=== PATIENT | female | born 1990 | race Hispanic/Latino ===

== ENCOUNTER 2017-08-15 01:36 | Emergency (ER) | payer MEDICARE ==
[~2017-08-15] VITALS: Ht 162.6 cm; Wt 129.3 kg
== END 2017-08-15 02:22 | disposition home or self-care (01) ==
LOC: ER 01:36
DX: M54.41 Lumbago with sciatica, right side (principal)
CPT/HCPCS: 99282

== ENCOUNTER 2017-11-22 16:07 | Emergency (ER) | payer OTHER ==
[~2017-11-22] VITALS: Ht 162.6 cm; Wt 122.5 kg
--- OUTSIDE RECORDS SUMMARY | 2017-11-22 16:11 | XMS REPORT | Clinical Summary ---
Author Author [facility] Address Unknown Phone Unavailable Care Team Providers Care Visual Display Manager Name Role Phone PCP Unavailable Allergies No Known Allergies Current Medications Prescription Sig. Disp. Refills Start End Date Status Date ursodiol (ACTIGALL) 300 TK 2 CS PO QAM AND 3 CS 1 01/30/20 Active mg capsule PO HS 17 OCALIVA 5 mg Tab 02/04/20 Active 17 metoclopramide HCl TAKE 1 TABLET BY MOUTH 0 01/12/20 Active (REGLAN) 10 MG tablet TWICE A DAY NEEDED 17 PARA NAUSEA acetaminophen-codeine TK 1 T PO Q 4-6 H PRN 0 02/23/20 Active (TYLENOL #4) 300-60 mg 17 per tablet promethazine (PHENERGAN) TK 1 T PO Q 4-6 H PRN 0 02/23/20 Active 25 MG tablet 17 PANTOPRAZOLE SODIUM Take by mouth as needed. Active (PANTOPRAZOLE ORAL) ciprofloxacin HCl (CIPRO) Take 500 mg by mouth 2 Active 500 MG tablet (two) times daily as needed. traMADol (ULTRAM) 50 mg TK 1 T PO Q 8 H PRN P 2 02/09/20 03/11/20 Discontin tablet 17 17 ued CARAFATE 100 mg/mL SW AND TK 10 ML PO BEFORE 0 02/23/20 03/10/20 Discontin suspension EVERY MEAL AND QHS 17 17 ued traMADol (ULTRAM) 50 mg Take 1 tablet (50 mg 20 tablet 0 03/11/20 tablet total) by mouth every 6 17 17 (six) hours as needed for Pain for up to 10 days. Max Daily Amount: 200 mg Active Problems Problem Noted Date Abnormal liver enzymes 02/24/2017 Last Assessment & Plan: Patient reports she first noticed abnormal liver test in 08/2015. Etiology is unclear could be due to PBC, AIH, NAFLD / BERRY, ALD. She has been treated for PBC with Ursodiol and OCA but her last ALP checked in 02/2017 was 171 and ALT:160. No imaging is available. Interestingly, patient had markedly elevated liver enzymes in early Sep, 2016 which totally normalzied in less than 2 weeks before staring OCA. We will order comprehensive labs and liver MRI for further investigation. We will not make any changes to her medications. She may need liver biopsy in the future if the lab results and imaging are inconclusive. Patient was strongly encouraged to stop drinking alcohol and reduce her soda intake. Morbid obesity 02/24/2017 Last Assessment & Plan: Body mass index is 47.65 kg/(m^2). Patient has morbid obesity. She was strongly encouraged to reduce her soda intake and quit drinking alcohol completely. Instructions regarding DASH diet and life style modification will be provided on discharge. Morbid obesity can contribute to her liver disease and it was explained that losing weight will help her liver disease as well. Primary biliary cholangitis 02/24/2017 Last Assessment & Plan: She has been treated for PBC with Ursodiol and OCA however her liver tests never went down to normal. No liver biopsy or AMA available. Will do comprehensive labs with imaging. She may need liver biopsy in the future if current studies are inconclusive or there is suspicion for concurrent AIH or other liver diseases. Gastroparesis 02/24/2017 Last Assessment & Plan: Patient takes Reglan and follows up with her primary GI specialist. Further management by primary GI specialist. Immunity status testing 02/24/2017 Last Assessment & Plan: All patients with chronic liver disease, regardless of etiology, should be immunized to prevent hepatitis A and hepatitis B if they are not already immune. We will test for immunity to both viruses - vaccine recommendations will follow. Cirrhosis 02/24/2017 Last Assessment & Plan: Patient reports she was diagnosed with cirrhosis besides PBC and it was also mentioned in her problem list from her GI specialist. No iamgign available. She doesn't report signs of decompensated cirrhosis. We will do comprehensive labs and liver MRI for further investigation. Encounters Date Type Specialty Care Team Description 04/30/2017 Orders Only Hepatology Ofelia Guy MD Primary biliary cholangitis (Primary Dx) 04/14/2017 Abstract Hepatology Hi Zamora 03/29/2017 Office Visit Hepatology Ofelia Guy MD Abnormal liver enzymes (Primary Dx) 03/15/2017 Telephone Hepatology Zane Garcia NP return call about liver biopsy 03/11/2017 Orders Only HepatOfelia Mejias MD Liver pain (Primary Dx) 03/10/2017 [facility] Ofelia Guy MD Abnormal liver enzymes Encounter 03/10/2017 Abstract HepatCarmel Rubio RN 02/26/2017 Orders Only HepatOfelia Mejias MD Abnormal liver enzymes (Primary Dx) 02/24/2017 Office Visit HepatOfelia Mejias MD Abnormal liver enzymes (Primary Dx);Primary biliary cholangitis (HCC);Morbid obesity due to excess calories (HCC);Cirrhosis of liver without ascites, unspecified hepatic cirrhosis type (HCC);Screening for endocrine/metabolic/immun ity disorders;Morbid obesity, unspecified obesity type (HCC);Primary biliary cholangitis ;Gastroparesis;Immunity status testing;Alcohol abuse after 11/21/2016 Social History Tobacco Use Types Packs/Day Years Used Date Never Smoker Alcohol Use Drinks/Week oz/Week Comments No Sex Assigned at Date Recorded Not on file Last Filed Vital Signs Vital Sign Reading Time Taken Blood Pressure 99/64 03/29/2017 2:45 PM CDT Pulse 83 03/29/2017 2:45 PM CDT Temperature 36.8 C (98.2 F) 03/29/2017 2:45 PM CDT Respiratory Rate 18 03/29/2017 2:45 PM CDT Oxygen Saturation 99% 03/29/2017 2:45 PM CDT Inhaled Oxygen - - Concentration Weight 119.5 kg (263 lb 6.4 oz) 03/29/2017 2:45 PM CDT Height 162.6 cm (5' 4") 03/29/2017 2:45 PM CDT Body Mass Index 45.21 03/29/2017 2:45 PM CDT Plan of Treatment Health Maintenance Due Date Last Done Comments INFLUENZA VACCINE 05/09/2018 Results * CBC with platelet count + automated diff (03/29/2017 3:48 PM) Only the most recent of 2 results within the time period is included. Component Value Ref Range WBC 4.5 3.5 - 10.5 K/ L RBC 4.51 3.93 - 5.22 M/ L Hemoglobin 13.7 11.2 - 15.7 GM/DL Hematocrit 41.3 34.1 - 44.9 % MCV 91.6 79.4 - 94.8 fL MCH 30.4 25.6 - 32.2 pg MCHC 33.2 32.2 - 35.5 GM/DL RDW 13.2 11.7 - 14.4 % Platelets 234 150 - 450 K/CU MM MPV 12.6 (H) 9.4 - 12.3 fL nRBC 0 0 - 0 /100 WBC % Neutros 59 % % Lymphs 32 % % Monos 7 % % Eos 1 % % Baso 1 % # Neutros 2.64 1.56 - 6.13 K/ L # Lymphs 1.45 1.18 - 3.74 K/ L # Monos 0.29 0.24 - 0.36 K/ L # Eos 0.05 0.04 - 0.36 K/ L # Baso 0.03 0.01 - 0.08 K/ L Immature 0 0 - 1 % Granulocytes-Relative Specimen Performing Laboratory Blood [place] [id number] * CBC with platelet count + automated diff (03/29/2017 3:48 PM) Only the most recent of 2 results within the time period is included. Specimen Performing Laboratory Blood Narrative The following orders were created for panel order CBC with platelet count + automated diff. Procedure Abnormality Status --------- - ------ CBC with platelet count ...[[id number]]AbnormalFinal result Please view results for these tests on the individual orders. * Gamma Glutamyl Transferase (GGT) (03/29/2017 3:48 PM) Component Value Ref Range GGT 66 (H) 9 - 64 U/L Specimen Performing Laboratory Blood [address] [address] * Hepatic function panel (03/29/2017 3:48 PM) Component Value Ref Range Protein, Total 7.0 6.0 - 8.3 gm/dL Albumin 3.9 3.5 - 5.0 g/dL Total Bilirubin 0.4 0.2 - 1.2 mg/dL Bilirubin, Direct 0.2 0.1 - 0.5 mg/dL Alkaline Phosphatase 110 40 - 150 U/L AST 14 5 - 34 U/L ALT 45 6 - 55 U/L Specimen Performing Laboratory Blood [address] [address] * Basic Metabolic Panel (03/29/2017 3:48 PM) Component Value Ref Range Sodium 142 136 - 145 meq/L Potassium 4.0 3.5 - 5.1 meq/L Chloride 108 (H) 98 - 107 meq/L CO2 25 22 - 29 meq/L BUN 5 (L) 7 - 21 mg/dL Creatinine 0.69 0.57 - 1.25 mg/dL Glucose 79 70 - 105 mg/dL Calcium 9.2 8.4 - 10.2 mg/dL EGFR 102Comment: ESTIMATED GFR IS NOT ACCURATE mL/min/1.73 sq m CREATININE CLEARANCE IN PREDICTING GLOMERULAR FILTRATION RATE. ESTIMATED GFR IS NOT APPLICABLE FOR DIALYSIS PATIENTS. Specimen Performing Laboratory Blood [address] [address] * Tissue Exam (03/10/2017 11:21 AM) Component Value Ref Range Case Report Surgical Pathology Report Case: [id number] Authorizing Provider: Ofelia Guy MD Collected: 03/10/2017 112 Ordering Location: [place] [address] OP Received: 03/10/2017 112 Pathologist: Lilibeth Arizmendi MD Specimen: Liver DIAGNOSIS LIVER, RIGHT LOBE, NEEDLE CORE BIOPSY: - LIVER WITH MILD PORTAL INFLAMMATION WITH DUCTULAR REACTION - LOBULE WITH MILD SINUSOIDAL DILATATION AND NONSPECIFIC LOBULAR INFLAMMATION - SEE COMMENT Signing Pathologist Direct Phone Line: [phone] COMMENT These findings are nonspecific in this 27-year-old female with a prior history of increased LFTs in February 2017; however, the current LFTs show ALT 15, AST 30, total bilirubin 0.7, alkaline phosphatase 104, AMA 23.8, slightly increased, and INES, ASMA and hepatitis viral panel negative. These findings are nonspecific, and clinical correlation is recommended. CPT Code(s) SJ/ew 21456 x1 [id number] x4 CLINICAL HISTORY Abnormal liver enzymes SPECIMEN SOURCE Right akutan liver biopsy GROSS DESCRIPTION The specimen is received in a formalin-filled container and labeled with the patient's information and labeled "right akutan liver biopsy" and consists of two pagan-red core biopsies measuring 2.5 and 2.6 cm in length. Both are bisected, submitted entirely A1. CG/pl MICROSCOPIC DESCRIPTION Five liver cores with adequate number of portal triads and preserved hepatic parenchyma. The lobules show diffuse mild sinusoidal dilatation and congestion predominantly in the perivenular area. There is nonspecific lobular inflammation noted comprised of lymphocytes and histiocytes. There is no significant apoptosis or areas of necrosis noted. The portal triad shows mild portal inflammation with ductular proliferation with associated neutrophils. No interface hepatitis or bile duct destruction is noted. Trichrome stain shows mild perivenular fibrosis and no significant portal fibrosis. PAS-D stain is negative for alpha-1 antitrypsin globules. Reticulin stain supports similar findings, and iron stain is negative. See final diagnosis and comment. SPECIAL STUDIES The following special studies were performed on this case and the interpretation is incorporated in the diagnostic report above: Performed Professional component [facility], Department of was performed at Pathology, [address] [place] [address], [place] [address], Specimen Performing [place] [address] * US liver biopsy (03/10/2017 10:21 AM) Specimen Performing Laboratory GE RIS Narrative FINAL REPORT Ultrasound guided liver biopsy. Modality: Ultrasound Clinical History: abnormal liver enzymes Consent: The risks (pain, bleeding, infection,injury to liver/adjacent structures, and adverse medication reactions), benefits, and alternatives to the procedure were discussed with the patient. The patient expressed understanding and informed written consent was obtained. Time out: A pre-procedure time out was performed in order to confirm the appropriate site of the procedure. Conscious sedation: (Given after informed consent is obtained.) 1.5 mg Versed and 100 mcg Fentanyl was given intravenously for moderate sedation monitored under my direction. Total time of sedation was 20 minutes. The patient's vital signs were monitored throughout the procedure and recorded in the patient's medical record by the nurse. Technique: The patient's liver is scanned, with the patient in the left lateral decubitus position. The right lobe of the liver is selected for biopsy. After the skin is prepped and draped in the usual sterile manner, the area is anesthetized with 1% Lidocaine. After a small skin incision is made, an 16 gauge Biopince core biopsy needle is advanced into the liver, under direct sonographic observation. Two passes are made made, with two core biopsies obtained. Postprocedure sonographic evaluation of the area reveals no perihepatic hematoma. The patient's vital signs remained stable throughout the procedure. No immediate complications are noted. Patient disposition: The patient is sent to the observation area to be followed to ensure stability of vital signs. Impression: Successful and uncomplicated ultrasound guided liver biopsy. Signed: Ángel Johnson MD Report Verified Date/Time:03/10/2017 10:22:03 Reading Location: [place] [id number] Ultrasound Reading Room Procedure Note Interface, External Ris In - 03/10/2017 10:24 AM CDT FINAL REPORT Ultrasound guided liver biopsy. Modality: Ultrasound Clinical History: abnormal liver enzymes Consent: The risks (pain, bleeding, infection, injury to liver/adjacent structures, and adverse medication reactions), benefits, and alternatives to the procedure were discussed with the patient. The patient expressed understanding and informed written consent was obtained. Time out: A pre-procedure time out was performed in order to confirm the appropriate site of the procedure. Conscious sedation: (Given after informed consent is obtained.) 1.5 mg Versed and 100 mcg Fentanyl was given intravenously for moderate sedation monitored under my direction. Total time of sedation was 20 minutes. The patient's vital signs were monitored throughout the procedure and recorded in the patient's medical record by the nurse. Technique: The patient's liver is scanned, with the patient in the left lateral decubitus position. The right lobe of the liver is selected for biopsy. After the skin is prepped and draped in the usual sterile manner, the area is anesthetized with 1% Lidocaine. After a small skin incision is made, an 16 gauge Biopince core biopsy needle is advanced into the liver, under direct sonographic observation. Two passes are made made, with two core biopsies obtained. Postprocedure sonographic evaluation of the area reveals no perihepatic hematoma. The patient's vital signs remained stable throughout the procedure. No immediate complications are noted. Patient disposition: The patient is sent to the observation area to be followed to ensure stability of vital signs. Impression: Successful and uncomplicated ultrasound guided liver biopsy. Signed: Ángel Johnson MD Report Verified Date/Time: 03/10/2017 10:22:03 Reading Location: [place] [id number] Ultrasound Reading Room * PT/aPTT (03/10/2017 8:00 AM) Component Value Ref Range Protime 14.9 (H) 11.7 - 14.7 seconds INR 1.2 <=5.9 PTT 32.0 22.5 - 36.0 seconds Specimen Performing Laboratory Blood [address] [address] Narrative RECOMMENDED COUMADIN/WARFARIN INR THERAPY RANGES STANDARD DOSE: 2.0 - 3.0 Includes: PROPHYLAXIS for venous thrombosis, systemic embolization; TREATMENT for venous thrombosis and/or pulmonary embolus. HIGH RISK: Target INR is 2.5-3.5 for patients with mechanical heart valves. * Screen, urine (03/10/2017 8:00 AM) Component Value Ref Range Preg Test, Ur Negative Specimen Performing Laboratory Urine - Urine, Clean [facility] [address] [place] [address] * Platelet count (03/10/2017 8:00 AM) Component Value Ref Range Platelets 229 150 - 450 K/CU MM Specimen Performing Laboratory Blood [address] [address] * Comprehensive metabolic panel (03/10/2017 8:00 AM) Only the most recent of 2 results within the time period is included. Component Value Ref Range Protein, Total 7.0 6.0 - 8.3 gm/dL Albumin 3.9 3.5 - 5.0 g/dL Alkaline Phosphatase 104 40 - 150 U/L Total Bilirubin 0.7 0.2 - 1.2 mg/dL Sodium 139 136 - 145 meq/L Potassium 3.8 3.5 - 5.1 meq/L Chloride 105 98 - 107 meq/L CO2 25 22 - 29 meq/L BUN 7 7 - 21 mg/dL Creatinine 0.69 0.57 - 1.25 mg/dL Glucose 92 70 - 105 mg/dL Calcium 8.7 8.4 - 10.2 mg/dL AST 13 5 - 34 U/L ALT 16 6 - 55 U/L EGFR 102Comment: ESTIMATED GFR IS NOT ACCURATE mL/min/1.73 sq m CREATININE CLEARANCE IN PREDICTING GLOMERULAR FILTRATION RATE. ESTIMATED GFR IS NOT APPLICABLE FOR DIALYSIS PATIENTS. Specimen Performing Laboratory Blood [address] [address] * Hepatitis A antibody, IgG (02/24/2017 3:43 PM) Component Value Ref Range Hep A IgG Reactive (A) Nonreactive Specimen Performing Laboratory Blood [address] [address] * Mitochondrial Antibodies, M2 (02/24/2017 3:43 PM) Component Value Ref Range Mitochondria M2 Ab 23.8 (H) See Note: U Comment: Reference Range: NEGATIVE: < OR=20.0 EQUIVOCAL: 20.1-24.9 POSITIVE: > OR=25.0 Specimen Performing Laboratory Blood [facility] [address] [address] Narrative Performing Lab [facility] [address] [address] Nelson Rodriguez MD * Iron, TIBC, % sat. (without ferritin) (02/24/2017 3:43 PM) Component Value Ref Range Iron 128 40 - 160 ug/dL TIBC 393 250 - 450 ug/dL Iron % Saturation 33 20 - 55 % Specimen Performing Laboratory Blood [address] [address] * Hepatitis C antibody (02/24/2017 3:43 PM) Component Value Ref Range Hepatitis C Ab Nonreactive Nonreactive Specimen Performing Laboratory Blood [address] [address] * Actin (Smooth Muscle) Antibody, IgG (02/24/2017 3:43 PM) Component Value Ref Range Anti-Smooth Muscle Ab <20 See Note: U Comment: Reference Range: <20 NEGATIVE > OR=20 POSITIVE Antibodies recognizing actin are the main component of smooth muscle antibodies associated with autoimmune liver disease. Actin antibodies are found in approximately 75% of patients with autoimmune hepatitis (AIH) type 1, approximately 65% of patients with autoimmune cholangitis, approximately 30% of patients with primary biliary cirrhosis, and approximately 2% of healthy people. High values are closely correlated with AIH type 1. Specimen Performing Laboratory Blood [facility] [place] [address] [address] Narrative Performing Lab [facility] [address] [address] Nelson Rodriguez MD * Ougqj-3-Akazybejala (02/24/2017 3:43 PM) Component Value Ref Range Ahgep-3-Cluyvshggbw 174 83 - 199 mg/dL Specimen Performing Laboratory Blood [facility] [address] [address] Narrative Performing Lab [facility] [address] [address] Nelson Rodriguez MD * Ceruloplasmin (02/24/2017 3:43 PM) Component Value Ref Range Ceruloplasmin 35 18 - 53 mg/dL Comment: Adults: Males: 18-36 mg/dL Females: 18-53 mg/dL Pediatrics: Males (mg/dL) Females (mg/dL) 0-30 Days 8-25 3-28 31 Days-11 Month 15-48 15-43 1-3 Years 25-56 29-54 4-6 Years 29-56 26-54 7-9 Years 25-52 23-48 10-12 Years 21-51 21-48 13-15 Years 20-50 21-46 16-18 Years 20-45 22-50 The pediatric ranges are derived from the following criteria: Ajay SJ, Evelyn JM, Chayo J et al Pediatric reference ranges for Kpzu-2-Bmevtwakfvngi and ceruloplasmin. Clin. Chem 1997; 43:S1999 Pediatric Reference Ranges, 2nd., [place] Ajayet al. editors. [employer], [place], [place] 1997. Specimen Performing Laboratory Blood [facility] [address] [address] Narrative Performing Lab *[facility] [address] [place] [address] Maria Guadalupe Jacobson MD, FCAP * Hepatitis B core antibody, total (02/24/2017 3:43 PM) Component Value Ref Range Hep B Core Total Ab Nonreactive Nonreactive Specimen Performing Laboratory Blood [facility] [address] * Hepatitis B surface antibody (02/24/2017 3:43 PM) Component Value Ref Range Hep B S Ab 106.3 (H) <8.0 mIU/mL Specimen Performing Laboratory Blood [address] [address] * Hepatitis B surface antigen (02/24/2017 3:43 PM) Component Value Ref Range hepatitis B Surface Ag Nonreactive Nonreactive Specimen Performing Laboratory [address] [address] * Pro-time/INR (02/24/2017 3:43 PM) Component Value Ref Range Protime 13.4 11.7 - 14.7 seconds INR 1.0 <=5.9 Specimen Performing Laboratory [address] [address] Narrative RECOMMENDED COUMADIN/WARFARIN INR THERAPY RANGES STANDARD DOSE: 2.0 - 3.0 Includes: PROPHYLAXIS for venous thrombosis, systemic embolization; TREATMENT for venous thrombosis and/or pulmonary embolus. HIGH RISK: Target INR is 2.5-3.5 for patients with mechanical heart valves. * Anti-Nuclear Antibody (INES) (02/24/2017 3:43 PM) Component Value Ref Range INES Negative Negative Specimen Performing Laboratory Blood [address] [address] * Ferritin (02/24/2017 3:43 PM) Component Value Ref Range Ferritin 30 5 - 275 ng/mL Specimen Performing Laboratory [address] [address] Narrative Effective 06/26/2014: Reference Range Change New: Male 5-275Previous: Male 22-322 Female 5-275Female 10-291 * Bilirubin, direct (02/24/2017 3:43 PM) Component Value Ref Range Bilirubin, Direct 0.3 0.1 - 0.5 mg/dL Specimen Performing Laboratory [address] [address] after 11/21/2016
--- OUTSIDE RECORDS SUMMARY | 2017-11-22 16:11 | XMS REPORT ---
Author Author [facility] Address Unknown Phone Unavailable Care Team Providers Care Director Of Managed Care Name Role Phone JARETH TOVAR Unavailable Unavailable Problems This patient has no known problems. Allergies, Adverse Reactions, Alerts This patient has no known allergies or adverse reactions. Medications This patient has no known medications. Results Test Description Test Time Test Comments Text Results Atomic Results Result Comments HEPATIC FUNCTION PANEL 2017-03-29 17:51:00 TOTAL PROTEIN (BEAKER) (test luoh=222) 7.0 gm/dL 6.0-8.3 ALBUMIN (BEAKER) (test mnpo=6461) 3.9 g/dL 3.5-5.0 BILIRUBIN TOTAL (BEAKER) (test jxnj=237) 0.4 mg/dL 0.2-1.2 BILIRUBIN DIRECT (BEAKER) (test ipgr=465) 0.2 mg/dL 0.1-0.5 ALKALINE PHOSPHATASE (BEAKER) (test wmmw=949) 110 U/L 40-150 AST (SGOT) (BEAKER) (test lxwi=622) 14 U/L 5-34 ALT (SGPT) (BEAKER) (test jlag=397) 45 U/L 6-55 BASIC METABOLIC [id number] 17:51:00* Test Item Value Reference Range Comments SODIUM (BEAKER) (test reeg=509) 142 meq/L 136-145 POTASSIUM (BEAKER) (test qbea=816) 4.0 meq/L 3.5-5.1 CHLORIDE (BEAKER) (test wypi=798) 108 meq/L 98-107 CO2 (BEAKER) (test xnam=881) 25 meq/L 22-29 BLOOD UREA NITROGEN (BEAKER) (test ranx=509) 5 mg/dL 7-21 CREATININE (BEAKER) (test qumu=871) 0.69 mg/dL 0.57-1.25 GLUCOSE RANDOM (BEAKER) (test dyir=298) 79 mg/dL 70-105 CALCIUM (BEAKER) (test tmta=544) 9.2 mg/dL 8.4-10.2 EGFR (BEAKER) (test zmfb=6352) 102 mL/min/1.73 sq m ESTIMATED GFR IS NOT ACCURATE CREATININE CLEARANCE IN PREDICTING GLOMERULAR FILTRATION RATE. ESTIMATED GFR IS NOT APPLICABLE FOR DIALYSIS PATIENTS. GAMMA GLUTAMYL TRANSFERASE (GGT)2017-03-29 17:51:00* Test Item Value Reference Range Comments GAMMA GLUTAMYL TRANSFERASE (BEAKER) (test jkvu=335) 66 U/L 9-64 CBC W/PLT COUNT & AUTO [id number] 17:25:00* Test Item Value Reference Range Comments WHITE BLOOD CELL COUNT (BEAKER) (test zito=893) 4.5 K/ L 3.5-10.5 RED BLOOD CELL COUNT (BEAKER) (test gjzb=521) 4.51 M/ L 3.93-5.22 HEMOGLOBIN (BEAKER) (test gvmz=634) 13.7 GM/DL 11.2-15.7 HEMATOCRIT (BEAKER) (test cavb=574) 41.3 % 34.1-44.9 MEAN CORPUSCULAR VOLUME (BEAKER) (test uwxi=173) 91.6 fL 79.4-94.8 MEAN CORPUSCULAR HEMOGLOBIN (BEAKER) (test zwft=453) 30.4 pg 25.6-32.2 MEAN CORPUSCULAR HEMOGLOBIN CONC (BEAKER) (test vlpv=127) 33.2 GM/DL 32.2- 35.5 RED CELL DISTRIBUTION WIDTH (BEAKER) (test xdov=678) 13.2 % 11.7-14.4 PLATELET COUNT (BEAKER) (test ocmu=033) 234 K/CU MM 150-450 MEAN PLATELET VOLUME (BEAKER) (test cnsj=706) 12.6 fL 9.4-12.3 NUCLEATED RED BLOOD CELLS (BEAKER) (test tcan=951) 0 /100 WBC 0-0 NEUTROPHILS RELATIVE PERCENT (BEAKER) (test rhaa=661) 59 % LYMPHOCYTES RELATIVE PERCENT (BEAKER) (test ojco=638) 32 % MONOCYTES RELATIVE PERCENT (BEAKER) (test mvub=806) 7 % EOSINOPHILS RELATIVE PERCENT (BEAKER) (test kkhb=569) 1 % BASOPHILS RELATIVE PERCENT (BEAKER) (test rgcd=455) 1 % NEUTROPHILS ABSOLUTE COUNT (BEAKER) (test lmvs=758) 2.64 K/ L 1.56-6.13 LYMPHOCYTES ABSOLUTE COUNT (BEAKER) (test xrio=094) 1.45 K/ L 1.18-3.74 MONOCYTES ABSOLUTE COUNT (BEAKER) (test pibq=073) 0.29 K/ L 0.24-0.36 EOSINOPHILS ABSOLUTE COUNT (BEAKER) (test ivky=509) 0.05 K/ L 0.04-0.36 BASOPHILS ABSOLUTE COUNT (BEAKER) (test oncc=474) 0.03 K/ L 0.01-0.08 IMMATURE GRANULOCYTES-RELATIVE PERCENT (BEAKER) (test qsbg=3025) 0 % 0-1 TISSUE [id number] 09:16:00Surgical Pathology Report Case: [id number] Authorizing Provider: Jareth Tovar MD Collected: 03/10/2017 112 Ordering Location: [place] [id number] OP Received: 03/10/2017 1121 Pathologist: Lilibeth Arizmendi MD Specimen: Liver LIVER, RIGHT LOBE, NEEDLE CORE BIOPSY: - LIVER WITH MILD PORTAL INFLAMMATION WITH DUCTULAR REACTION - LOBULE WITH MILD SINUSOIDAL DILATATION AND NONSPECIFIC LOBULAR INFLAMMATION - SEE COMMENT Signing Pathologist Direct Phone Line: [phone] signed by Lilibeth Arizmendi MD on 03/18/2017 at 9:16 AMThese findings are nonspecific in this 27-year-old female with a prior history of increased LFTs in February 2017; however, the current LFTs show ALT 15, AST 30, total bilirubin 0.7 , alkaline phosphatase 104, AMA 23.8, slightly increased, and INES, ASMA and hepatitis viral panel negative. These findings are nonspecific, and clinical correlation is recommended./[id number] liver enzymesRight [place]eld[place] liver biopsyThe specimen is received in a formalin-filled container and labeled with the patient's information and labeled "right [place] liver biopsy" and consists of two pagan-red core biopsies measuring 2.5 and 2.6 cm in length. Both are bisected, submitted entirely A1. CG/pl Five liver cores with adequate number of [...] stain is negative. See final diagnosis and comment.The following special studies were performed on this case and the interpretation is incorporated in the diagnostic report above:[facility], Department of Pathology , [address] [place], [place] [address], SSFOBLNQX SCREEN, [id number] 08:37:00* Test Item Value Reference Range Comments TEST URINE (BEAKER) (test rxzp=226) Negative COMPREHENSIVE METABOLIC [id number] 08:35:00* Test Item Value Reference Range Comments TOTAL PROTEIN (BEAKER) (test nsfl=415) 7.0 gm/dL 6.0-8.3 ALBUMIN (BEAKER) (test qfor=4619) 3.9 g/dL 3.5-5.0 ALKALINE PHOSPHATASE (BEAKER) (test xfde=509) 104 U/L 40-150 BILIRUBIN TOTAL (BEAKER) (test cayu=930) 0.7 mg/dL 0.2-1.2 SODIUM (BEAKER) (test plzz=284) 139 meq/L 136-145 POTASSIUM (BEAKER) (test ropu=542) 3.8 meq/L 3.5-5.1 CHLORIDE (BEAKER) (test sxbx=481) 105 meq/L 98-107 CO2 (BEAKER) (test ydiv=188) 25 meq/L 22-29 BLOOD UREA NITROGEN (BEAKER) (test okps=542) 7 mg/dL 7-21 CREATININE (BEAKER) (test wfwy=077) 0.69 mg/dL 0.57-1.25 GLUCOSE RANDOM (BEAKER) (test qeuo=064) 92 mg/dL 70-105 CALCIUM (BEAKER) (test cdlc=063) 8.7 mg/dL 8.4-10.2 AST (SGOT) (BEAKER) (test iore=878) 13 U/L 5-34 ALT (SGPT) (BEAKER) (test kzfd=015) 16 U/L 6-55 EGFR (BEAKER) (test rkgf=2363) 102 mL/min/1.73 sq m ESTIMATED GFR IS NOT ACCURATE CREATININE CLEARANCE IN PREDICTING GLOMERULAR FILTRATION RATE. ESTIMATED GFR IS NOT APPLICABLE FOR DIALYSIS PATIENTS. [id number] 08:28:00* Test Item Value Reference Range Comments PROTIME (BEAKER) (test tjcn=648) 14.9 seconds 11.7-14.7 INR (BEAKER) (test rtif=207) 1.2 <=5.9 PARTIAL THROMBOPLASTIN TIME (BEAKER) (test gttm=417) 32.0 seconds 22.5-36.0 RECOMMENDED COUMADIN/WARFARIN INR THERAPY RANGESSTANDARD DOSE: 2.0 - 3.0 Includes: PROPHYLAXIS for venous thrombosis, systemic embolization; TREATMENT for venous thrombosis and/or pulmonary embolus.HIGH RISK: Target INR is 2.5-3.5 for patients with mechanical heart valves.PLATELET [id number] 08:09:00* Test Item Value Reference Range Comments PLATELET COUNT (BEAKER) (test rjmi=634) 229 K/CU MM 150-450 ANTI-NUCLEAR ANTIBODY (INES)2017-02-26 13:37:00* Test Item Value Reference Range Comments ANTI-NUCLEAR ANTIBODY (INES) (BEAKER) (test mhiw=802) Negative Negative HEPATITIS A ANTIBODY, [id number] 19:50:00* Test Item Value Reference Range Comments HEPATITIS A IGG ANTIBODY (BEAKER) (test zkbr=7098) Reactive Nonreactive HEPATITIS B SURFACE [id number] 19:45:00* Test Item Value Reference Range Comments HEPATITIS B SURFACE ANTIGEN (2) (BEAKER) (test jacg=2397) Nonreactive Nonreactive HEPATITIS B SURFACE [id number] 19:45:00* Test Item Value Reference Range Comments HEPATITIS B SURFACE ANTIBODY (BEAKER) (test unyc=836) 106.3 mIU/mL <8.0 HEPATITIS B CORE ANTIBODY, [id number] 19:45:00* Test Item Value Reference Range Comments HEPATITIS B CORE TOTAL ANTIBODY (BEAKER) (test pniy=290) Nonreactive Nonreactive HEPATITIS C [id number] 19:30:00* Test Item Value Reference Range Comments HEPATITIS C ANTIBODY (BEAKER) (test ldcz=141) Nonreactive Nonreactive IRON, TIBC, % SAT. (WITHOUT FERRITIN)2017-02-24 19:13:00* Test Item Value Reference Range Comments IRON (BEAKER) (test somn=772) 128 ug/dL 40-160 TOTAL IRON BINDING CAPACITY (BEAKER) (test rngd=924) 393 ug/dL 250-450 IRON % SATURATION (2) (BEAKER) (test lycd=9832) 33 % 20-55 [id number] 18:59:00* Test Item Value Reference Range Comments FERRITIN (BEAKER) (test evdc=958) 30 ng/mL 5-275 Effective 06/26/2014: Reference Range ChangeNew: Male 5-275 Previous: Male 22-322 Female 5-275 Female 10-291 COMPREHENSIVE METABOLIC [id number] 17:53:00* Test Item Value Reference Range Comments TOTAL PROTEIN (BEAKER) (test nlps=099) 7.3 gm/dL 6.0-8.3 ALBUMIN (BEAKER) (test whlq=5712) 4.0 g/dL 3.5-5.0 ALKALINE PHOSPHATASE (BEAKER) (test xnzn=978) 207 U/L 40-150 BILIRUBIN TOTAL (BEAKER) (test topq=583) 0.7 mg/dL 0.2-1.2 SODIUM (BEAKER) (test dmjv=938) 140 meq/L 136-145 POTASSIUM (BEAKER) (test zxdn=649) 3.5 meq/L 3.5-5.1 CHLORIDE (BEAKER) (test vlrg=147) 104 meq/L 98-107 CO2 (BEAKER) (test ihoz=421) 26 meq/L 22-29 BLOOD UREA NITROGEN (BEAKER) (test xsri=797) 7 mg/dL 7-21 CREATININE (BEAKER) (test kepe=957) 0.71 mg/dL 0.57-1.25 GLUCOSE RANDOM (BEAKER) (test lhci=823) 83 mg/dL 70-105 CALCIUM (BEAKER) (test cwsu=916) 9.1 mg/dL 8.4-10.2 AST (SGOT) (BEAKER) (test ieuj=372) 165 U/L 5-34 ALT (SGPT) (BEAKER) (test nwbs=746) 419 U/L 6-55 EGFR (BEAKER) (test lmlx=6208) 99 mL/min/1.73 sq m ESTIMATED GFR IS NOT ACCURATE CREATININE CLEARANCE IN PREDICTING GLOMERULAR FILTRATION RATE. ESTIMATED GFR IS NOT APPLICABLE FOR DIALYSIS PATIENTS. BILIRUBIN, [id number] 17:53:00* Test Item Value Reference Range Comments BILIRUBIN DIRECT (BEAKER) (test zmcg=322) 0.3 mg/dL 0.1-0.5 PROTHROMBIN TIME/[id number] 17:46:00* Test Item Value Reference Range Comments PROTIME (BEAKER) (test ebdy=304) 13.4 seconds 11.7-14.7 INR (BEAKER) (test bkty=317) 1.0 <=5.9 RECOMMENDED COUMADIN/WARFARIN INR THERAPY RANGESSTANDARD DOSE: 2.0 - 3.0 Includes: PROPHYLAXIS for venous thrombosis, systemic embolization; TREATMENT for venous thrombosis and/or pulmonary embolus.HIGH RISK: Target INR is 2.5-3.5 for patients with mechanical heart valves.CBC W/PLT COUNT & AUTO [id number] 17:28:00* Test Item Value Reference Range Comments WHITE BLOOD CELL COUNT (BEAKER) (test aasb=722) 7.0 K/ L 4.0-10.0 RED BLOOD CELL COUNT (BEAKER) (test slew=792) 4.46 M/ L 4.00-5.00 HEMOGLOBIN (BEAKER) (test qnoy=770) 14.1 GM/DL 12.0-15.0 HEMATOCRIT (BEAKER) (test ljsg=100) 42.8 % 36.0-45.0 MEAN CORPUSCULAR VOLUME (BEAKER) (test cemp=283) 95.8 fL 82.0-99.0 MEAN CORPUSCULAR HEMOGLOBIN (BEAKER) (test sauh=997) 31.6 pg 27.0-33.0 MEAN CORPUSCULAR HEMOGLOBIN CONC (BEAKER) (test dqyw=847) 32.9 GM/DL 32.0- 36.0 RED CELL DISTRIBUTION WIDTH (BEAKER) (test ynzp=668) 12.4 % 10.3-14.2 PLATELET COUNT (BEAKER) (test effm=054) 224 K/CU MM 150-430 MEAN PLATELET VOLUME (BEAKER) (test ejms=681) 9.4 fL 6.5-10.5 NUCLEATED RED BLOOD CELLS (BEAKER) (test ggcz=356) 0 /100 WBC 0-0 NEUTROPHILS RELATIVE PERCENT (BEAKER) (test dqzx=555) 64 % LYMPHOCYTES RELATIVE PERCENT (BEAKER) (test urmw=663) 29 % MONOCYTES RELATIVE PERCENT (BEAKER) (test opzk=935) 6 % EOSINOPHILS RELATIVE PERCENT (BEAKER) (test lvak=110) 1 % BASOPHILS RELATIVE PERCENT (BEAKER) (test hmji=676) 0 % NEUTROPHILS ABSOLUTE COUNT (BEAKER) (test lven=175) 4.47 K/ L 1.80-8.00 LYMPHOCYTES ABSOLUTE COUNT (BEAKER) (test cdge=777) 2.06 K/ L 1.48-4.50 MONOCYTES ABSOLUTE COUNT (BEAKER) (test wuvh=842) 0.40 K/ L 0.00-1.30 EOSINOPHILS ABSOLUTE COUNT (BEAKER) (test cyua=020) 0.09 K/ L 0.00-0.50 BASOPHILS ABSOLUTE COUNT (BEAKER) (test eaak=850) 0.03 K/ L 0.00-0.20 0.00
--- OUTSIDE RECORDS SUMMARY | 2017-11-22 16:11 | XMS REPORT | Clinical Summary ---
Author Author FRANK [facility] Address Unknown Phone Unavailable Care Team Providers Care Building Illuminating Engineer Name Role Phone PCP Unavailable Allergies No [...] Mejias MD Liver pain (Primary Dx) 03/10/2017 [facility] Ofelia Guy MD Abnormal liver enzymes Encounter [...] 1 % Granulocytes-Relative Specimen Performing Laboratory Blood [place] [id number] * CBC with platelet count + automated diff (03/29/2017 3:48 PM) Only the most recent of 2 results within the time period is included. Specimen Performing Laboratory Blood Narrative The following orders were created for panel order CBC with platelet count + automated diff. Procedure Abnormality Status --------- - ------ CBC with platelet count ...[[id number]]AbnormalFinal result Please view results for these tests on the individual orders. * Gamma Glutamyl Transferase (GGT) (03/29/2017 3:48 PM) Component Value Ref Range GGT 66 (H) 9 - 64 U/L Specimen Performing Laboratory Blood [address] [address] * Hepatic function panel (03/29/2017 3:48 PM) Component Value Ref Range Protein, Total 7.0 6.0 - 8.3 gm/dL Albumin 3.9 3.5 - 5.0 g/dL Total Bilirubin 0.4 0.2 - 1.2 mg/dL Bilirubin, Direct 0.2 0.1 - 0.5 mg/dL Alkaline Phosphatase 110 40 - 150 U/L AST 14 5 - 34 U/L ALT 45 6 - 55 U/L Specimen Performing Laboratory Blood [address] [address] * Basic Metabolic Panel (03/29/2017 3:48 PM) [...] FOR DIALYSIS PATIENTS. Specimen Performing Laboratory Blood [address] [address] * Tissue Exam (03/10/2017 11:21 AM) Component Value Ref Range Case Report Surgical Pathology Report Case: [id number] Authorizing Provider: Ofelia Guy MD Collected: 03/10/2017 112 Ordering Location: [place] [address] OP Received: 03/10/2017 112 Pathologist: Lilibeth Arizmendi MD Specimen: Liver DIAGNOSIS LIVER, RIGHT LOBE, NEEDLE CORE BIOPSY: - LIVER WITH MILD PORTAL INFLAMMATION WITH DUCTULAR REACTION - LOBULE WITH MILD SINUSOIDAL DILATATION AND NONSPECIFIC LOBULAR INFLAMMATION - SEE COMMENT Signing Pathologist Direct Phone Line: [phone] COMMENT These findings are nonspecific in this 27-year-old female with a prior history of increased LFTs in February 2017; however, the current LFTs show ALT 15, AST 30, total bilirubin 0.7, alkaline phosphatase 104, AMA 23.8, slightly increased, and INES, ASMA and hepatitis viral panel negative. These findings are nonspecific, and clinical correlation is recommended. CPT Code(s) SJ/ew 11871 x1 [id number] x4 CLINICAL HISTORY Abnormal liver enzymes SPECIMEN SOURCE Right levelock liver biopsy GROSS DESCRIPTION The specimen is received in a formalin-filled container and labeled with the patient's information and labeled "right [place] liver biopsy" and consists of two pagan-red [...] the diagnostic report above: Performed Professional component [facility], Department of was performed at Pathology, [address] [place] [address], [place] [address], Specimen Performing Laboratory [place] [address] * US liver biopsy (03/10/2017 10:21 AM) [...] MD Report Verified Date/Time:03/10/2017 10:22:03 Reading Location: [place] [id number] Ultrasound Reading Room Procedure Note Interface, External [...] Report Verified Date/Time: 03/10/2017 10:22:03 Reading Location: [place] [id number] Ultrasound Reading Room * PT/aPTT (03/10/2017 8:00 AM) Component Value Ref Range Protime 14.9 (H) 11.7 - 14.7 seconds INR 1.2 <=5.9 PTT 32.0 22.5 - 36.0 seconds Specimen Performing Laboratory Blood [address] [address] Narrative RECOMMENDED COUMADIN/WARFARIN INR THERAPY RANGES STANDARD DOSE: 2.0 - 3.0 Includes: PROPHYLAXIS for venous thrombosis, systemic embolization; TREATMENT for venous thrombosis and/or pulmonary embolus. HIGH RISK: Target INR is 2.5-3.5 for patients with mechanical heart valves. * Screen, urine (03/10/2017 8:00 AM) Component Value Ref Range Preg Test, Ur Negative Specimen Performing Laboratory Urine - Urine, Clean [facility] Catch [address] [place] [address] * Platelet count (03/10/2017 8:00 AM) Component Value Ref Range Platelets 229 150 - 450 K/CU MM Specimen Performing Laboratory Blood [address] [address] * Comprehensive metabolic panel (03/10/2017 8:00 AM) [...] FOR DIALYSIS PATIENTS. Specimen Performing Laboratory Blood [address] [address] * Hepatitis A antibody, IgG (02/24/2017 3:43 PM) Component Value Ref Range Hep A IgG Reactive (A) Nonreactive Specimen Performing Laboratory Blood [address] [address] * Mitochondrial Antibodies, M2 (02/24/2017 3:43 PM) Component Value Ref Range Mitochondria M2 Ab 23.8 (H) See Note: U Comment: Reference Range: NEGATIVE: < OR=20.0 EQUIVOCAL: 20.1-24.9 POSITIVE: > OR=25.0 Specimen Performing Laboratory Blood [facility] [address] [address] Narrative Performing Lab [facility] [address] [address] Nelson Rodriguez MD * Iron, TIBC, % sat. (without ferritin) (02/24/2017 3:43 PM) Component Value Ref Range Iron 128 40 - 160 ug/dL TIBC 393 250 - 450 ug/dL Iron % Saturation 33 20 - 55 % Specimen Performing Laboratory Blood [address] [address] * Hepatitis C antibody (02/24/2017 3:43 PM) Component Value Ref Range Hepatitis C Ab Nonreactive Nonreactive Specimen Performing Laboratory Blood [address] [address] * Actin (Smooth Muscle) Antibody, IgG (02/24/2017 [...] 1. Specimen Performing Laboratory Blood [facility] [place] [address] [address] Narrative Performing Lab [facility] [address] [address] Nelson Rodriguez MD * Qganr-5-Hopupexyeka (02/24/2017 3:43 PM) Component Value Ref Range Erjyx-4-Hcjzicjfpcj 174 83 - 199 mg/dL Specimen Performing Laboratory Blood [facility] [address] [address] Narrative Performing Lab [facility] [address] [address] Nelson Rodriguez MD * Ceruloplasmin (02/24/2017 3:43 [...] J et al Pediatric reference ranges for Naah-0-Bhrnebwttpusk and ceruloplasmin. Clin. Chem 1997; 43:S1999 Pediatric Reference Ranges, 2nd., [place] Ajayet al. editors. [employer], [place], [place] 1997. Specimen Performing Laboratory Blood [facility] [address] [address] Narrative Performing Lab *[facility] [place] [facility], [address] [place] [address] Maria Guadalupe Jacobson MD, FCAP * Hepatitis B core antibody, total (02/24/2017 3:43 PM) Component Value Ref Range Hep B Core Total Ab Nonreactive Nonreactive Specimen Performing Laboratory Blood [facility] [address] * Hepatitis B surface antibody (02/24/2017 3:43 PM) Component Value Ref Range Hep B S Ab 106.3 (H) <8.0 mIU/mL Specimen Performing Laboratory Blood [address] [address] * Hepatitis B surface antigen (02/24/2017 3:43 PM) Component Value Ref Range hepatitis B Surface Ag Nonreactive Nonreactive Specimen Performing Laboratory [address] [address] * Pro-time/INR (02/24/2017 3:43 PM) Component Value Ref Range Protime 13.4 11.7 - 14.7 seconds INR 1.0 <=5.9 Specimen Performing Laboratory [address] [address] Narrative RECOMMENDED COUMADIN/WARFARIN INR THERAPY RANGES STANDARD DOSE: 2.0 - 3.0 Includes: PROPHYLAXIS for venous thrombosis, systemic embolization; TREATMENT for venous thrombosis and/or pulmonary embolus. HIGH RISK: Target INR is 2.5-3.5 for patients with mechanical heart valves. * Anti-Nuclear Antibody (INES) (02/24/2017 3:43 PM) Component Value Ref Range INES Negative Negative Specimen Performing Laboratory Blood [address] [address] * Ferritin (02/24/2017 3:43 PM) Component Value Ref Range Ferritin 30 5 - 275 ng/mL Specimen Performing Laboratory [address] [address] Narrative Effective 06/26/2014: Reference Range Change New: Male 5-275Previous: Male 22-322 Female 5-275Female 10-291 * Bilirubin, direct (02/24/2017 3:43 PM) Component Value Ref Range Bilirubin, Direct 0.3 0.1 - 0.5 mg/dL Specimen Performing Laboratory [address] [address] after 11/21/2016
[2017-11-22] MEDS ORDERED: KETOROLAC TROMETHAMINE 30 MG/ML VIAL IV STA (16:24)
[2017-11-22 16:56] LABS: BASOPHILS # (AUTO) 0.1 (0.0-0.1); BASOPHILS % 0.7 % (0.0-1.0); EOSINOPHILS # (AUTO) 0.2 (0.0-0.4); EOSINOPHILS % 2.8 % (0.0-6.0); HEMATOCRIT 40.3 % (34.2-44.1); HEMOGLOBIN 13.4 g/dL (12.0-16.0); LYMPHOCYTES # (AUTO) 2.1 (1.0-3.2); LYMPHOCYTES % 28.6 % (18.0-39.1); MEAN CORPUSCULAR HEMOGLOBIN 30.2 pg (28-32); MEAN CORPUSCULAR HGB CONC 33.3 g/dL (31-35); MONOCYTES # (AUTO) 0.4 (0.2-0.8); MONOCYTES % 5.7 % (4.4-11.3); NEUTROPHILS # (AUTO) 4.5 (2.1-6.9); NEUTROPHILS % 62.1 % (38.7-80.0); PLATELET COUNT 210 x10e3/uL (140-360); RED BLOOD COUNT 4.43 x10e6/uL (3.6-5.1); RED CELL DISTRIBUTION WIDTH 13.4 % (11.7-14.4)
[2017-11-22 17:09] LABS: BILIRUBIN,URINE NEGATIVE (NEGATIVE); CLARITY,URINE CLEAR (CLEAR); COLOR,URINE YELLOW (YELLOW); KETONES,URINE NEGATIVE (NEGATIVE); LEUKOCYTE ESTERASE ,URINE NEGATIVE (NEGATIVE); NITRITE,URINE NEGATIVE (NEGATIVE); PREGNANCY TEST, URINE NEGATIVE (NEGATIVE); PROTEIN,URINE DIPSTICK NEGATIVE (NEGATIVE); URINE UROBILINOGEN 0.2 mg/dL (0.2 - 1)
[2017-11-22 17:20] LABS: BACTERIA,URINE MANY /HPF; EPITHELIAL CELLS,URINE MANY /LPF
[2017-11-22 17:33] LABS: ALANINE AMINOTRANSFERASE 23 IU/L (0-55); ALBUMIN 3.4 g/dL (3.5-5.0); ALBUMIN/GLOBULIN RATIO 0.9 (0.8-2.0); ALKALINE PHOSPHATASE 87 IU/L (40-150); ANION GAP 12.8 mmol/L (8-16); BLOOD UREA NITROGEN < 5 mg/dL (7-26); CALCIUM 8.7 mg/dL (8.4-10.2); CARBON DIOXIDE 25 mmol/L (22-29); CHLORIDE 103 mmol/L (98-107); CREATININE, SERUM 0.72 mg/dL (0.57-1.11); EST GLOMERULAR FILTRATION RATE > 60 ML/MIN (60-); GLUCOSE 86 mg/dL (74-118); POTASSIUM 3.8 mmol/L (3.5-5.1); SODIUM 137 mmol/L (136-145)
[2017-11-22 17:34] LABS: BUN/CREATININE RATIO 7 (6-25)
[2017-11-22 18:02] VITALS: BP 126/73
== END 2017-11-22 18:17 | disposition home or self-care (01) ==
LOC: ER 16:10
DX: R10.9 Unspecified abdominal pain (principal); S39.011A Strain of muscle, fascia and tendon of abdomen, initial encounter; M79.1 Myalgia
CPT/HCPCS: 36415; 80053; 81001; 81025; 85025; 87086; 99284; J1885

== ENCOUNTER 2019-02-07 22:36 | Emergency (ER) | payer OTHER ==
[~2019-02-07] VITALS: Ht 162.6 cm; Wt 129.7 kg
--- OUTSIDE RECORDS SUMMARY | 2019-02-07 22:37 | XMS REPORT | Clinical Summary ---
Author Author FRANK [facility] Address Unknown Phone Unavailable Care Team Providers Care Food Service Helper Name Role Phone Trip--Fabian Barreto PCP Allergies No Known Allergies Medications End Date Status Medication Sig Dispensed Refills Start Date Active ursodiol (ACTIGALL) 300 TK 2 CS PO 1 mg capsule QAM AND 3 CS 7 PO HS Active OCALIVA 5 mg Tab 0 7 Active metoclopramide HCl TAKE 1 TABLET 0 (REGLAN) 10 MG tablet BY MOUTH 7 TWICE A DAY NEEDED PARA NAUSEA Active acetaminophen-codeine TK 1 T PO Q 0 (TYLENOL #4) 300-60 mg 4-6 H PRN 7 per tablet Active promethazine (PHENERGAN) TK 1 T PO Q 0 25 MG tablet 4-6 H PRN 7 Active PANTOPRAZOLE SODIUM Take by mouth 0 (PANTOPRAZOLE ORAL) as needed. Active ciprofloxacin HCl (CIPRO) Take 500 mg 0 500 MG tablet by mouth 2 (two) times daily as needed. Active Problems Problem Noted Date Abnormal liver [...] labs and liver MRI for further investigation. Social History Date Tobacco Use Types Packs/Day Years Used Never Smoker Alcohol Use Drinks/Week oz/Week Comments No Sex Assigned at Date Recorded Not on file Industry Job Start Date Occupation Not on file Not on file Not on file Travel End Travel History Travel Start No recent travel history available. Last Filed Vital Signs Not on file Plan of Treatment Not on file Results Not on fileafter 02/06/2018 Insurance Payer Benefit Subscriber ID Type Phone Address Plan / Group MEDICAID - MEDICAID [place] MEDICAID xxxxxxxxx Medicaid [facility]ARE [facility] Contracted HEALTH CHOICE Advance Directives For more information, please contact: [facility] [address] [place] [address] Date Inactivated Comments Code Status Date Activated 03/10/2017 6:52 PM Full Code 03/10/2017 11:07 AM This code status was determined by: Patient
[2019-02-07] MEDS ORDERED: SODIUM CHLORIDE 0.9% 1000ML 1,000 ML IV STA (23:25)
[2019-02-07] MEDS ORDERED: PANTOPRAZOLE 40 MG 10ML VIAL IV STA (23:25)
[2019-02-07] MEDS ORDERED: ONDANSETRON HCL INJ 2MG/ML 2ML 2 MG/ML VIAL IV ONE (23:30)
[2019-02-08] LABS: BASOPHILS % 0.3 % (0.0-1.0); EOSINOPHILS # (AUTO) 0.1 (0.0-0.4); EOSINOPHILS % 1.2 % (0.0-6.0); HEMATOCRIT 37.4 % (34.2-44.1); HEMOGLOBIN 11.9 g/dL (12.0-16.0); LYMPHOCYTES # (AUTO) 2.1 (1.0-3.2); LYMPHOCYTES % 27.6 % (18.0-39.1); MEAN CORPUSCULAR HEMOGLOBIN 28.1 pg (28-32); MEAN CORPUSCULAR HGB CONC 31.8 g/dL (31-35); MEAN CORPUSCULAR VOLUME 88.4 fL (81-99); MONOCYTES # (AUTO) 0.6 (0.2-0.8); MONOCYTES % 8.2 % (4.4-11.3); NEUTROPHILS # (AUTO) 4.7 (2.1-6.9); NEUTROPHILS % 62.2 % (38.7-80.0); PLATELET COUNT 265 x10e3/uL (140-360); RED BLOOD COUNT 4.23 x10e6/uL (3.6-5.1); RED CELL DISTRIBUTION WIDTH 14.7 % (11.7-14.4)
[2019-02-08 00:01] LABS: BILIRUBIN,URINE NEGATIVE (NEGATIVE); CLARITY,URINE CLEAR (CLEAR); COLOR,URINE YELLOW (YELLOW); KETONES,URINE NEGATIVE (NEGATIVE); LEUKOCYTE ESTERASE ,URINE NEGATIVE (NEGATIVE); NITRITE,URINE NEGATIVE (NEGATIVE); PROTEIN,URINE DIPSTICK NEGATIVE (NEGATIVE); URINE UROBILINOGEN 0.2 mg/dL (0.2 - 1)
[2019-02-08 00:14] LABS: ALANINE AMINOTRANSFERASE 50 IU/L (0-55); ALBUMIN 3.4 g/dL (3.5-5.0); ALBUMIN/GLOBULIN RATIO 1.2 (0.8-2.0); ALKALINE PHOSPHATASE 78 IU/L (40-150); AMYLASE 102 U/L (25-125); BLOOD UREA NITROGEN 6 mg/dL (7-26); BUN/CREATININE RATIO 8 (6-25); CALCIUM 8.7 mg/dL (8.4-10.2); CARBON DIOXIDE 26 mmol/L (22-29); CHLORIDE 106 mmol/L (98-107); CREATININE, SERUM 0.79 mg/dL (0.57-1.11); EST GLOMERULAR FILTRATION RATE > 60 ML/MIN (60-); GLUCOSE 78 mg/dL (74-118); LIPASE 44 U/L (8-78); SODIUM 139 mmol/L (136-145)
[2019-02-08 00:15] LABS: BACTERIA,URINE FEW /HPF; EPITHELIAL CELLS,URINE FEW /LPF
--- NOTE | 2019-02-08 00:15 | Diagnostic Imaging Report ---
EXAMINATION: CHEST 2 VIEWS INDICATION: Right-sided chest pain ^right sided c/p COMPARISON: None FINDINGS: PA and lateral views TUBES and LINES: None. LUNGS: Lung volumes are low. No interstitial edema. Vascular markings are normal. No consolidation. PLEURA: No pleural effusion or pneumothorax. HEART AND MEDIASTINUM: The cardiomediastinal silhouette is unremarkable.. BONES AND SOFT TISSUES: No focal osseous lesions. Soft tissues are unremarkable. UPPER ABDOMEN: No free air under the diaphragm. Cholecystectomy clips are present. IMPRESSION: No acute thoracic abnormality. Signed by: Dr. Anahy Trujillo MD on 02/08/2019 12:12 AM
[2019-02-08 00:16] LABS: PREGNANCY TEST, URINE NEGATIVE (NEGATIVE); TRANSITIONAL EPI CELLS,URINE FEW
[2019-02-08] MEDS ORDERED: KETOROLAC TROMETHAMINE 30 MG/ML VIAL IV STA (00:38)
[2019-02-08] MEDS ORDERED: KETOROLAC TROMETHAMINE 60 MG/2 ML VIAL IM ONE (01:30)
[2019-02-08 01:59] VITALS: BP 93/53
--- NOTE | 2019-02-08 02:00 | NUR ---
DISCUSSION AT BEDSIDE WITH DR YOUNG AND PATIENT, PATIENT STATES HER BP IS ALWAYS LOW DUE TO LIVER DISEASE, PATIENT STATES HER BASELINE IS 90 SYSTOLIC, PATIENT DOES NOT APPEAR IN DISTRESS, PINK IN COLOR, DENIES SHORTNESS OF BREATH OF CHEST PAIN, DR YOUNG CLEARED TO GO HOME WITH THESE VITAL SIGNS
--- NOTE | 2019-02-08 06:28 | NUR ---
RETURNED KETOROLAC VIAL 60MG TO BREANN -PHARMACIST, THIS NURSE ACCIDENTALY WASTED VIAL IN PYXIS SYSTEM. the intention was to waste only 30mg. pharmacy intake coordinator on duty as witness.
== END 2019-02-08 02:09 | disposition home or self-care (01) ==
LOC: ER 22:36
DX: R10.11 Right upper quadrant pain (principal); R11.0 Nausea; K21.9 Gastro-esophageal reflux disease without esophagitis
CPT/HCPCS: 36415; 71046; 80053; 81001; 81025; 82150; 83690; 85025; 85379; 93005; 99284; J1885

== ENCOUNTER 2019-03-01 21:41 | Emergency (ER) | payer OTHER ==
[~2019-03-01] VITALS: Ht 162.6 cm; Wt 129.7 kg
--- OUTSIDE RECORDS SUMMARY | 2019-03-01 21:43 | XMS REPORT | Clinical Summary ---
Author Author FRANK [facility] Address Unknown Phone Unavailable Care Team Providers Care Assurance Manager Name Role Phone Trip--Fabian Barreto PCP Allergies [...] Not on file Results Not on fileafter 02/28/2018 Insurance Payer Benefit Subscriber ID Type Phone Address Plan / Group MEDICAID - MEDICAID [place] MEDICAID xxxxxxxxx Medicaid CARE [facility] Contracted HEALTH CHOICE Advance Directives For more information, please contact: [facility] [address] [place] [address] Date Inactivated Comments Code Status Date Activated 03/10/2017 6:52 PM Full Code 03/10/2017 11:07 AM This code status was determined by: Patient
[2019-03-01 23:07] LABS: BILIRUBIN,URINE NEGATIVE (NEGATIVE); CLARITY,URINE SL CLOUDY (CLEAR); COLOR,URINE YELLOW (YELLOW); KETONES,URINE NEGATIVE (NEGATIVE); LEUKOCYTE ESTERASE ,URINE NEGATIVE (NEGATIVE); NITRITE,URINE NEGATIVE (NEGATIVE); PROTEIN,URINE DIPSTICK NEGATIVE (NEGATIVE); URINE UROBILINOGEN 0.2 mg/dL (0.2 - 1)
[2019-03-01 23:14] LABS: PREGNANCY TEST, URINE NEGATIVE (NEGATIVE)
[2019-03-01 23:28] LABS: RBC,URINE 0-5 /HPF (0-5)
[2019-03-01 23:29] LABS: BACTERIA,URINE FEW /HPF; EPITHELIAL CELLS,URINE MODERATE /LPF; RENAL EPITHELIAL CELLS,URINE FEW; TRANSITIONAL EPI CELLS,URINE FEW
== END 2019-03-02 01:15 | disposition home or self-care (01) ==
LOC: ER 21:41
DX: N93.9 Abnormal uterine and vaginal bleeding, unspecified (principal)
CPT/HCPCS: 81001; 81025; 99283